=== PATIENT | female | born 1940 | race Hispanic/Latino ===

== ENCOUNTER 2022-12-15 05:48 | Inpatient (IN) | payer MEDICAID, SELFPAY ==
[2022-12-15] MEDS ORDERED: methylPREDNISolone Sod Succ 40 MG VIAL ONE (09:04)
[2022-12-15] MEDS ORDERED: diphenhydrAMINE 50 MG/ML VIAL ONE (09:04)
[2022-12-15] MEDS ORDERED: Ondansetron PF 4 MG/2 ML Vial IVP PRN (09:08)
[2022-12-15] MEDS ORDERED: Electrolyte Replacement Protocol 1 EACH IVPB SCH (09:08)
[2022-12-15] MEDS ORDERED: HumaLOG 300 UNITS/3 ML VIAL SC PRN ×2 (09:08)
[2022-12-15] MEDS ORDERED: Acetaminophen 325 MG TAB PO PRN (09:10)
[2022-12-15] MEDS ORDERED: Ondansetron ODT 4 MG TAB PO PRN (09:10)
[2022-12-15] MEDS ORDERED: Acetaminophen 650 MG Suppository PR PRN (09:10)
[2022-12-15] MEDS ORDERED: Bisacodyl 10 MG SUPP PR PRN (09:10)
[2022-12-15] MEDS ORDERED: Senokot S 8.6-50 MG TAB PO PRN (09:10)
[2022-12-15] MEDS ORDERED: Famotidine/PF 20 mg/2ml Vial ONE (09:11)
[2022-12-15] MEDS ORDERED: hydrALAZINE 20 MG/ML VIAL SLOW IVP PRN (09:14)
[2022-12-15] MEDS ORDERED: Sodium Chloride 0.9% 1,000 ML IV SCH (09:15)
[2022-12-15] MEDS ORDERED: Nitroglycerin 2% Ointment 1 INCH/1 GM Packet TOP SCH (09:15)
[2022-12-15 10:13] LABS: Troponin I 0.011 ng/mL (< 0.028)
[2022-12-15] MEDS ORDERED: Iopamidol 370 76% 100 ML VIAL ONE (10:26)
[2022-12-15] MEDS ORDERED: Dextrose 5%-Lactated Ringers 1,000 ML IV SCH ×3 (10:45→17:49)
[2022-12-15] MEDS ORDERED: EPINEPHrine 1 MG/ML AMP IM PRN (10:52)
[2022-12-15] MEDS: Famotidine/PF 20 mg/2ml Vial SLOW IVP SCH ×2 (11:00→20:18)
[2022-12-15] MEDS: diphenhydrAMINE 50 MG/ML VIAL IVP SCH ×2 (11:00→17:28)
[2022-12-15] MEDS: Ipratropium/Albuterol 3 ML NEB NEB SCH ×4 (11:14→22:42)
[2022-12-15 11:25] VITALS: BMI 34.7
[2022-12-15] MEDS: methylPREDNISolone Sod Succ 40 MG VIAL IVP SCH ×2 (12:43→17:28)
[2022-12-15 16:19] VITALS: BP 154/76
[2022-12-15] MEDS ORDERED: Nitroglycerin 2% Ointment 1 INCH/1 GM Packet TOP PRN (17:45)
[2022-12-15] MEDS: hydrALAZINE 20 MG/ML VIAL SLOW IVP PRN (18:18)
[2022-12-15] MEDS: Budesonide 0.5 MG/2 ML NEB NEB SCH (18:25)
[2022-12-15] MEDS ORDERED: Loratadine 10 MG TAB PO SCH (21:00)
[2022-12-15] MEDS ORDERED: Latanoprost 0.005% Ophth Soln 2.5 ml Bottle EA EYE SCH (21:00)
[2022-12-15] MEDS ORDERED: Heparin 5,000 UNITS/ML VIAL SC SCH (21:00)
[2022-12-16] MEDS: diphenhydrAMINE 50 MG/ML VIAL IVP SCH ×3 (00:30→16:09)
[2022-12-16] MEDS: methylPREDNISolone Sod Succ 40 MG VIAL IVP SCH ×3 (00:31→16:09)
[2022-12-16] MEDS: Ipratropium/Albuterol 3 ML NEB NEB SCH ×4 (02:53→15:23)
[2022-12-16] MEDS: Budesonide 0.5 MG/2 ML NEB NEB SCH (06:35)
[2022-12-16 07:39] LABS: #Lymphocytes 1.2 thou/uL (1.20-3.40); #Monocytes 0.2 thou/uL (0.11-0.59); #Neutrophils 9.8 thou/uL (1.40-6.50); %Basophils 0.1 % (0.0-1.0); %Eosinophils 0.1 % (0.0-10.0); %Lymphocytes 10.8 % (21.0-51.0); %Monocytes 1.4 % (0.0-10.0); %Neutrophils 87.6 % (42.0-75.0); Mean Corpuscular HGB CONC 32.7 g/dL (32.0-36.0); Mean Corpuscular Hemoglobin 30.2 pg (27.0-31.0); Mean Corpuscular Volume 92.5 fl (78.0-98.0); Platelet Count 172 10x3/uL (130-400); RBC Distribution Width 13.4 % (11.5-14.5); Red Blood Cell (RBC) Count 4.32 mill/uL (4.20-5.40); White Blood Cell (WBC) Count 11.2 10x3/uL (4.8-10.8)
[2022-12-16 07:58] LABS: ALT (SGPT) 11 U/L (8-55); AST (SGOT) 14 U/L (5-34); Albumin 3.7 g/dL (3.4-4.8); Alkaline Phosphatase 76 U/L (40-110); Anion Gap 13 mmol/L (10-20); BUN (Urea Nitrogen) 15 mg/dL (9.8-20.1); Bilirubin, Total 0.6 mg/dL (0.2-1.2); Calc. Creatinine Clearance 59 mL/min (70-130); Calcium 9.1 mg/dL (7.8-10.44); Carbon Dioxide 23 mmol/L (23-31); Chloride 107 mmol/L (98-107); Estimated GFR 59; Globulin 3.8 g/dL (2.4-3.5); Glucose 176 mg/dL (83-110); Magnesium 1.8 mg/dL (1.6-2.6); Potassium 3.6 mmol/L (3.5-5.1); Protein, Total 7.5 g/dL (5.8-8.1); Sodium 139 mmol/L (136-145)
[2022-12-16] MEDS: Famotidine/PF 20 mg/2ml Vial SLOW IVP SCH (09:31)
[2022-12-16] MEDS: hydrALAZINE 20 MG/ML VIAL SLOW IVP PRN (09:31)
[2022-12-16] MEDS ORDERED: Magnesium 2 GM/50 ML(in water) 2 GM in Premix Bag 1 BAG IVPB SCH (10:00)
[2022-12-16 14:25] VITALS: TEMP 98.3
== END 2022-12-16 16:15 | disposition home or self-care (01) | DRG 916 ==
LOC: ERS 05:48 → SUATTDRO 05:48 → IMCU/EMU 08:16
PROVIDERS: ADMIT Internal Medicine; ATTEND Hospitalist
PROC: 30233K1 Transfusion of Nonautologous Frozen Plasma into Peripheral Vein, Percutaneous Approach (ICD-10-PCS; principal; 2022-12-15)
DX: T78.3XXA Angioneurotic edema, initial encounter (principal); I10 Essential (primary) hypertension; E78.5 Hyperlipidemia, unspecified; I16.0 Hypertensive urgency; N18.30 Chronic kidney disease, stage 3 unspecified; I12.9 Hypertensive chronic kidney disease with stage 1 through stage 4 chronic kidney disease, or unspecified chronic kidney disease; D84.1 Defects in the complement system; T50.995A Adverse effect of other drugs, medicaments and biological substances, initial encounter; Z88.0 Allergy status to penicillin
CPT/HCPCS: 36415; 36416; 36430; 70491; 80053; 83735; 85025; 86850; 86900; 86901; 94640; 94760; J0360; J1200; J1650; J2920; J3475; J7620; J7626; P9059; S0028

== ENCOUNTER 2022-12-25 15:29 | Inpatient (IN) | payer MEDICAID ==
[2022-12-25] MEDS ORDERED: fentaNYL 50 mcg/mL 1 mL Vial ONE ×2 (16:08→18:47)
[2022-12-25 16:29] LABS: #Eosinphils 0.2 thou/uL (0.0-0.7); #Lymphocytes 1.9 thou/uL (1.20-3.40); #Monocytes 0.7 thou/uL (0.11-0.59); #Neutrophils 5.3 thou/uL (1.40-6.50); %Basophils 0.6 % (0.0-1.0); %Lymphocytes 23.1 % (21.0-51.0); %Monocytes 8.3 % (0.0-10.0); Mean Corpuscular Hemoglobin 29.9 pg (27.0-31.0); Mean Corpuscular Volume 93.4 fl (78.0-98.0); Platelet Count 165 10x3/uL (130-400); RBC Distribution Width 13.5 % (11.5-14.5); Red Blood Cell (RBC) Count 4.69 mill/uL (4.20-5.40); White Blood Cell (WBC) Count 8.1 10x3/uL (4.8-10.8)
[2022-12-25 16:49] LABS: ALT (SGPT) 12 U/L (8-55); AST (SGOT) 19 U/L (5-34); Albumin 3.8 g/dL (3.4-4.8); Alkaline Phosphatase 91 U/L (40-110); Anion Gap 14 mmol/L (10-20); BUN (Urea Nitrogen) 13 mg/dL (9.8-20.1); Bilirubin, Total 0.7 mg/dL (0.2-1.2); Calc. Creatinine Clearance 0 mL/min (70-130); Calcium 9.2 mg/dL (7.8-10.44); Carbon Dioxide 22 mmol/L (23-31); Chloride 104 mmol/L (98-107); Estimated GFR 68; Globulin 3.8 g/dL (2.4-3.5); Glucose 97 mg/dL (83-110); Lipase 23 U/L (8-78); Potassium 4.6 mmol/L (3.5-5.1); Protein, Total 7.6 g/dL (5.8-8.1); Sodium 135 mmol/L (136-145)
[2022-12-25] MEDS ORDERED: Ondansetron PF 4 MG/2 ML Vial IVP PRN (18:45)
[2022-12-25 18:54] LABS: Bilirubin Negative (Negative); Blood, Urine Negative (Negative); Clarity Clear (Clear); Glucose, Urine (Dipstick) Normal (Negative); Ketone, Urine Negative (Negative); Leukocyte Negative Leu/uL (Negative); Nitrite Negative (Negative); Protein, Urine (Dipstick) Negative (Neg-Trace); Specific Gravity, Urine 1.006 (1.002-1.036); Urobilinogen Normal mg/dL (Less than 2)
[2022-12-25] MEDS: Sodium Chloride 0.9% 1,000 ML IV SCH (21:22)
[2022-12-25] MEDS: Famotidine/PF 20 mg/2ml Vial SLOW IVP SCH (21:22)
[2022-12-25] MEDS: Morphine 2 MG/ML VIAL SLOW IVP PRN (21:33)
[2022-12-25 21:45] VITALS: BMI 36.2
[2022-12-26] MEDS: Morphine 2 MG/ML VIAL SLOW IVP PRN ×2 (05:08→20:14)
[2022-12-26] MEDS: Sodium Chloride 0.9% 1,000 ML IV SCH ×2 (05:13→17:18)
[2022-12-26] MEDS: Famotidine/PF 20 mg/2ml Vial SLOW IVP SCH ×2 (13:29→20:08)
[2022-12-26] MEDS ORDERED: Atorvastatin Calcium 20 MG TAB PO SCH (15:00)
[2022-12-26] MEDS: Timolol 0.25% Ophth Soln 5 ml Bottle EA EYE SCH ×3 (17:22→20:09)
[2022-12-26] MEDS: Carvedilol 3.125 MG TAB PO SCH (20:08)
[2022-12-26] MEDS ORDERED: Latanoprost 0.005% Ophth Soln 2.5 ml Bottle EA EYE SCH (21:00)
[2022-12-27] MEDS: Sodium Chloride 0.9% 1,000 ML IV SCH ×2 (02:55→08:21)
[2022-12-27] MEDS: Morphine 2 MG/ML VIAL SLOW IVP PRN (08:04)
[2022-12-27] MEDS: Famotidine/PF 20 mg/2ml Vial SLOW IVP SCH (08:04)
[2022-12-27] MEDS: Carvedilol 3.125 MG TAB PO SCH (08:04)
[2022-12-27] MEDS: Timolol 0.25% Ophth Soln 5 ml Bottle EA EYE SCH (08:06)
[2022-12-27] MEDS ORDERED: [UNRECOGNIZED DRUG - OTHER] PO SCH (09:00)
[2022-12-27 11:32] VITALS: BP 133/80; TEMP 98
== END 2022-12-27 12:33 | disposition home or self-care (01) | DRG 446 ==
LOC: ERS 15:29 → SURG A 18:49
PROVIDERS: ADMIT Hospitalist; ATTEND Nurse Practitioner Family
DX: K80.20 Calculus of gallbladder without cholecystitis without obstruction (principal); E78.5 Hyperlipidemia, unspecified; I10 Essential (primary) hypertension; K21.9 Gastro-esophageal reflux disease without esophagitis; Z88.0 Allergy status to penicillin; Z88.8 Allergy status to other drugs, medicaments and biological substances; Z79.899 Other long term (current) drug therapy
CPT/HCPCS: 74176; 76705; 80053; 81003; 83690; 85025; 93005; J1650; J1956; J2272; J2405; J3010; J7050; S0028